=== PATIENT | female | born 1980 | race Caucasian/White ===

== ENCOUNTER 2017-07-29 00:45 | Emergency (ER) | payer MEDICAID, OTHER ==
[~2017-07-29] VITALS: Ht 157.5 cm; Wt 81.6 kg
[~2017-07-29 00:45] MED LIST: DEXT1POW2 PO; [UNRECOGNIZED DRUG - OTHER] PO
--- NOTE | 2017-07-29 01:04 | NUR ---
TO ROOM 4B FOR ER EVAL.PT DENIES PAIN.PT ABLE TO DRINK WATER AND SPEAK IN FULL SENTENCES WITHOUT DIFFICULTY.NO DROOLING NOTED.PT STATES FEELING LIKE THIS FOR A FEW DAYS
--- NOTE | 2017-07-29 01:22 | NUR ---
Dr. Sales at bedside for MSE
[2017-07-29 01:53] LABS: BILIRUBIN,DIRECT 0.2 mg/dL (0.0-0.2); BILIRUBIN,TOTAL 0.5 mg/dL (0.2-1.0); CREATININE 0.8 mg/dL (0.6-1.3); POTASSIUM 3.9 mmol/L (3.5-5.1); TOTAL PROTEIN, SERUM 7.9 g/dL (6.4-8.2)
[2017-07-29 02:06] LABS: HEMATOCRIT 39.5 % (37-47); HEMOGLOBIN 13.4 G/DL (12.0-16.0); MEAN CORPUSCULAR HEMOGLOBIN 26.6 UUG (27.0-31.0); MEAN CORPUSCULAR HGB CONC 34 g/dL (32.0-37.0); MEAN CORPUSCULAR VOLUME 78.8 FL (81.0-99.0); RED BLOOD CELL COUNT(AUTO) 5.02 MIL/UL (4.2-5.4); WHITE BLOOD COUNT (AUTO) 8.4 K/UL (4.0-11.2)
[2017-07-29 02:07] LABS: BASOPHILS % (AUTO) 0.4 % (0.0-2.0); EOSINOPHILS % (AUTO) 0.6 % (0.0-7.0); LYMPHOCYTES % (AUTO) 20.4 % (20.5-51.5); MONOCYTES % (AUTO) 5.7 % (0.0-11.0); NEUTROPHILS % (AUTO) 72.9 % (38.5-71.5); PLATELET COUNT (AUTO) 277 K/UL (150-450)
--- NOTE | 2017-07-29 02:30 | NUR ---
PT FEELING MUCH BETTER.NO PAIN NO FEELING LIKE HAVING DIFFICULTY SWALLOWING.TAKING FLUIDS WITHOUT DIFFICULTY.BP 117/73 P 76 R 18 O2 SAT 97% ROOM AIR.PT D/C HOME WITH FAMILY WITH [facility] EXPLAINED TO PT SHE VERBALIZED UNDERSTANDING
[2017-07-29 02:43] VITALS: BP 117/73
== END 2017-07-29 02:44 | disposition home or self-care (01) ==
LOC: ER 00:45
DX: F41.0 Panic disorder [episodic paroxysmal anxiety] (principal)
CPT/HCPCS: 36415; 71010; 80048; 80076; 84443; 84703; 85025; 93005; 99285; A4663

== ENCOUNTER 2017-09-02 17:38 | Emergency (ER) | payer OTHER ==
[~2017-09-02] VITALS: Ht 160 cm; Wt 72.6 kg
[2017-09-02 19:07] LABS: *BILIRUBIN,URIN NEGATIVE (NEGATIVE); *BLOOD, URINE NEGATIVE (NEGATIVE); *CLARITY,URINE SLIGHTLY HAZY (CLEAR); *COLOR,URINE LIGHT YELLOW (YELLOW); *KETONES,URINE NEGATIVE (NEGATIVE); *PROTEIN,URINE NEGATIVE (NEGATIVE); *UROBILINOGEN,URINE 0.2 E.U./dl (NORMAL); LEUKOCYTE ESTERASE ,URINE 2+ (NEGATIVE); NITRITE, URINE NEGATIVE (NEGATIVE); PH,URINE 5.5 (5.0-8.0); UGLUCOSE NEGATIVE (NEGATIVE)
[2017-09-02 19:19] LABS: RBC,URINE 0-3 /HPF (0-3)
[2017-09-02 19:20] LABS: BACTERIA,URINE FEW /HPF (NONE SEEN); SQUAMOUS EPITHELIAL CELL,UR FEW /HPF (NONE SEEN)
[2017-09-02 19:38] LABS: *URINE HCG, QUAL NEGATIVE (NEGATIVE)
--- NOTE | 2017-09-02 20:10 | NUR ---
Patient discharged to home in stable conditon. Written and verbal after care instructions given. Patient verbalizes understanding of instructions.
== END 2017-09-02 20:11 | disposition home or self-care (01) ==
LOC: ER 17:39
DX: N39.0 Urinary tract infection, site not specified (principal)
CPT/HCPCS: 81001; 84703; 87086; 99284; A4663